=== PATIENT | female | born 1935 | race Two or more races ===

== ENCOUNTER 2022-07-18 20:55 | Inpatient (IN) | payer MEDICAID, OTHER ==
[~2022-07-18] VITALS: Ht 152.4 cm; Wt 51.3 kg
--- NOTE | 2022-07-18 21:12 | NUR ---
TO ER BED 10, BIBRA 90 FROM HOME FOR MORE ALTERED THAN NORMAL AND POOR PO INTAKE X 3 DAYS, AAOX1, BREATHING EVEN AND NON LABORED, CONNECTED TO MONITOR, AWAITING MD ORDERS
[2022-07-18] MEDS ORDERED: IV NS 0.9% 1,000 ML BAG IV ONE (21:30)
--- NOTE | 2022-07-18 21:48 | NUR ---
URINE COLLECTED AND SENT TO LAB
[2022-07-18 21:54] LABS: BASOPHILS % (AUTO) 0.3 % (0.0-2.0); EOSINOPHILS % (AUTO) 2.1 % (0.0-6.0); HEMATOCRIT 39 % (33-45); HEMOGLOBIN 12.5 g/dL (11.5-14.8); LYMPHOCYTES # (AUTO) 1.1 K/uL (0.8-4.8); LYMPHOCYTES % (AUTO) 17.5 % (20.0-44.0); MEAN CORPUSCULAR HGB CONC 32 g/dl (31.0-36.0); MEAN CORPUSCULAR VOLUME 91 fL (82-100); MONOCYTES # (AUTO) 0.7 K/uL (0.1-1.30); MONOCYTES % (AUTO) 10.6 % (2.0-12.0); NEUTROPHILS # (AUTO) 4.5 K/uL (1.8-8.9); NEUTROPHILS % (AUTO) 69.5 % (43.0-81.0); PLATELET COUNT (AUTO) 303 K/uL (150-450); RED BLOOD CELL COUNT(AUTO) 4.26 MIL/uL (4.0-5.2); WHITE BLOOD COUNT (AUTO) 6.5 K/uL (4.3-11.0)
--- NOTE | 2022-07-18 22:01 | NUR ---
TAKEN TO CT
[2022-07-18 22:24] LABS: ALANINE AMINOTRANSFERASE 13 U/L (12-78); ALBUMIN 2.2 g/dL (3.4-5.0); ALKALINE PHOSPHATASE 87 U/L (46-116); ASPARTATE AMINOTRANSFERASE 16 U/L (15-37); BILIRUBIN,DIRECT 0.1 mg/dL (0.0-0.2); BILIRUBIN,TOTAL 0.4 mg/dL (0.2-1.0); CALCIUM, SERUM 10.1 mg/dL (8.5-10.1); CARBON DIOXIDE 28 mmol/L (21-32); CHLORIDE 100 mmol/L (98-107); CREATININE 0.6 mg/dL (0.6-1.3); GLUCOSE 169 mg/dL (74-106); POTASSIUM 3.9 mmol/L (3.5-5.1); SODIUM SERUM 133 mmol/L (136-145); THYROID STIMULATING HORMONE 16.445 uIU/mL (0.358-3.74); TOTAL PROTEIN, SERUM 6.8 g/dL (6.4-8.2); UREA NITROGEN, BLOOD 15 mg/dL (7-18)
[2022-07-18 22:25] LABS: BILIRUBIN,URINE 1+ (NEGATIVE); COLOR,URINE YELLOW (YELLOW); LEUKOCYTE ESTERASE ,URINE 1+ (NEGATIVE); NITRITE, URINE NEGATIVE (NEGATIVE); PROTEIN,URINE TRACE mg/dl (NEGATIVE); UGLUCOSE NEGATIVE (NEGATIVE)
[2022-07-18 23:19] LABS: BACTERIA,URINE Many /HPF (None Seen); RBC,URINE 0-2 /HPF (0-2); SQUAMOUS EPITHELIAL CELL,UR Few /HPF (None Seen); WBC,URINE TOO NUMEROUS TO COUN /HPF (0-3)
[2022-07-18] MEDS ORDERED: CEFTRIAXONE 1GM BAG (ER ONLY) 50 ML IV ONE (23:38)
[2022-07-19] MEDS ORDERED: CEFTRIAXONE 1GM BAG (ER ONLY) 1 GM/50 ML PIGGYBACK IV ONE
[2022-07-19] MEDS ORDERED: ONDANSETRON HCL/PF 4 MG/2 ML VIAL IVP PRN (01:30)
[2022-07-19] MEDS ORDERED: ACETAMINOPHEN 325 MG TABLET PO PRN (01:30)
[2022-07-19] MEDS ORDERED: Z GUARD REMEDY 4 OZ OINT TP PRN (01:30)
[2022-07-19] MEDS ORDERED: MAGNESIUM HYDROXIDE 30 ML UDC PO PRN (01:30)
[2022-07-19] MEDS ORDERED: MAG HYDROX/AL HYDROX/SIMETH 30 ML UDC PO PRN (01:30)
[2022-07-19] MEDS ORDERED: ZOLPIDEM TARTRATE 5 MG TABLET PO PRN (01:30)
--- NOTE | 2022-07-19 01:36 | NUR ---
ATTEMPTED TO GIVE REPORT, NURSE IS STILL BUSY
--- NOTE | 2022-07-19 01:50 | NUR ---
REPORT GIVEN TO ALEKS PABON FOR IRMA
--- NOTE | 2022-07-19 02:00 | NUR ---
ROAD CONDUCTOR NOTES ADMITTED AN 87Y FEMALE PT FROM ER, PT ARRIVED VIA GURNEY ACCOMPANIED BY 2 ER PERSONNELS, PT WITH ADMITTING DX OF AMS AND UTI. PT ALERT AND ORIENTED TO SELF ONLY, SAMMARINESE SPEAKING. ON RA, SATTING 97%, NOT IN ACUTE DISTRESS, NO SOB. BREATHING EVEN AND UNLABORED. AFEBRILE. NO EVIDENCE OF PAIN OR DISCOMFORT NOTED AT THIS TIME. IV ACCESS ON RAC 18G, INTACT AND DRY. PT NOTED WITH OPEN WOUNDS ON LLE AND MULTIPLE SCRATCHES ON ABD AND SACRAL AREA. DRESSING REINFORCED. UNABLE TO OBTAIN PMHX D/T PT ALOC. SAFETY MEASSURES IMPLEMENTED: BED LOCKED AND IN LOWEST POSITION, BED ALARM ON. CALL LIGHT WITHIN EASY REACH. WILL CONT WITH POC.
[2022-07-19 04:00] VITALS: BP 154/77
[2022-07-19] MEDS: IV NS 0.9% 1,000 ML IV PRN ×2 (04:33→17:31)
--- NOTE | 2022-07-19 06:30 | NUR ---
PEDIATRIC ORTHODONTIST CLOSING NOTES PT. REMAINS IN STABLE CONDITION. AFEBRILE. CURRENTLY SLEEPING, NO FACIAL GRIMACING NOTED AT THIS TIME. ON RA, NO SOB, NO ACUTE RESP DISTRESS NOTED. IV ACCESS ON RAC 18G INTACT AND PATENT, NS CURRENTLY RUNNING AT 75ML/HR ORDERED. ALL NEEDS ATTENDED. KEPT PT CLEAN AND DRY AT ALL TIMES. SAFETY MEASURES IMPLEMENTED: BED LOCKED AND IN LOWEST POSITION, BED ALARM ON. CALL LIGHT WITHIN EASY REACH. WILL ENDORSE TO AM NURSE FOR IRMA.
[2022-07-19] MEDS: PANTOPRAZOLE 40 MG TABLET.DR PO SCH (07:32)
--- NOTE | 2022-07-19 07:32 | NUR ---
WOUND CARE CONSULT: PT PRESENTS WITH LEFT LOWER LEG WOUND, PEELING SKIN TO HEELS, SACRAL INTACT DEEP TISSUE INJURY, ALL PRESENT ON ADMISSION. DPM CONSULT MADE TO DR CARREON. RECOMMENDATIONS MADE FOR SKIN PROTECTION. DISCUSSED WITH NURSING STAFF. PT IS INCONTINENT. IN AGREEMENT WITH PLAN OF CARE. Addendum: 07/19/22 at 0734 by JULI RAINEY WNDNU Amended: Links added.
[2022-07-19 08:00] VITALS: BP 168/77
--- NOTE | 2022-07-19 08:54 | NUR ---
RN OPENING NOTE RECEIVED PATIENT IN BED, CONFUSED, ORIENTED X1, ABLE TO RESPONDS TO STIMULI. RESPIRATORY EVEN AND UNLABORED ON ROOM AIR. IV ACCESS RIGHT AC, FLUSHES WELL. PT INCONTINENT, PUREWICK IN USE. NO ACUTE DISTRESS OBSERVED. SKIN IS WARM TO TOUCH, KEEP CLEAN/DRY. KEPT ELEVATED HOB FOR ASPIRATION PRECAUTION/ENSURE AIRWAY, AND LOWEST BED POSITIONED. BED ALARM IS ON AT ALL THE TIME FOR SAFETY. CALL LIGHT WITHIN REACH, WILL CONTINUE TO MONITOR
[2022-07-19] MEDS ORDERED: CHOL100043 PO (10:12)
[2022-07-19] MEDS ORDERED: DICL100G34 TP (10:12)
[2022-07-19] MEDS ORDERED: MELO-107 PO (10:12)
[2022-07-19] MEDS ORDERED: OXYB5TAB16 PO (10:12)
[2022-07-19] MEDS: LEVOTHYROXINE SODIUM 50 MCG TABLET PO SCH (11:18)
[2022-07-19 12:00] VITALS: BP 169/73
[2022-07-19] MEDS ORDERED: CLONIDINE HCL 0.1 MG TABLET PO PRN (12:30)
[2022-07-19 16:19] VITALS: BP 125/55
--- NOTE | 2022-07-19 18:34 | NUR ---
C4 PLANNER CLOSING NOTES PT. REMAINS IN STABLE CONDITION. O2 98% ON RA, NO SOB, NO ACUTE RESP DISTRESS NOTED. IV ACCESS ON RAC 18G INTACT FLASHES WELL, NS CURRENTLY RUNNING AT 75ML/HR ORDERED. 100 ML URINE OUTPUT BY PUREWICK, BLADDER SCAN DONE AT 18:00 TO CHECK FOR URINE RETENTION, NO RETENTION NOTED. SAFETY MEASURES IMPLEMENTED: BED LOCKED AND IN LOWEST POSITION, BED ALARM ON. CALL LIGHT WITHIN EASY REACH.
--- NOTE | 2022-07-19 19:30 | NUR ---
FOOD AND DRUG INSPECTOR OPENING NOTES - RECEIVED PATIENT LAYING IN BED ASLEEP, EASY TO AROUSE. A/O X1, LETHARGIC AND PERIODS OF CONFUSION NOTED. BREATHING EVEN AND NON-LABORED ON ROOM AIR. DENIES PAIN AT THIS TIME. ON TELE MONITOR READING SINUS BRADYCARDIA AT 50 BPM. HAS RIGHT ANTECUBITAL IV ACCESS #18G WITH NS RUNNING AT 75 ML/HR. NO S/S OF INFILTRATION NOTED. PUREWICK SECURELY PLACED TO PERINEAL AREA. SAFETY MEASURES IN PLACE: BED LOCKED AND IN LOW POSITION, SIDE RAILS UP X3, CALL LIGHT WITHIN REACH. WILL CONTINUE POC.
[2022-07-19 20:00] VITALS: BP 121/82
[2022-07-19] MEDS: CEFTRIAXONE 1 G in IV D5W 50 ML IV SCH (20:20)
[2022-07-20] VITALS: BP 131/60
--- NOTE | 2022-07-20 | NUR ---
NOTIFIED HOSPITALIST RADHA THAT PATIENT'S CHART IS READY FOR MED RECON.
[2022-07-20 04:00] VITALS: BP 148/61
[2022-07-20 06:55] LABS: BASOPHILS % (AUTO) 0.3 % (0.0-2.0); EOSINOPHILS % (AUTO) 4.1 % (0.0-6.0); HEMATOCRIT 35 % (33-45); HEMOGLOBIN 11.3 g/dL (11.5-14.8); LYMPHOCYTES # (AUTO) 1.3 K/uL (0.8-4.8); LYMPHOCYTES % (AUTO) 21.7 % (20.0-44.0); MEAN CORPUSCULAR HGB CONC 32 g/dl (31.0-36.0); MEAN CORPUSCULAR VOLUME 91 fL (82-100); MONOCYTES # (AUTO) 0.6 K/uL (0.1-1.30); MONOCYTES % (AUTO) 10.5 % (2.0-12.0); NEUTROPHILS # (AUTO) 3.7 K/uL (1.8-8.9); NEUTROPHILS % (AUTO) 63.4 % (43.0-81.0); PLATELET COUNT (AUTO) 299 K/uL (150-450); RED BLOOD CELL COUNT(AUTO) 3.85 MIL/uL (4.0-5.2); WHITE BLOOD COUNT (AUTO) 5.9 K/uL (4.3-11.0)
[2022-07-20 07:15] LABS: CALCIUM, SERUM 9.7 mg/dL (8.5-10.1); CARBON DIOXIDE 25 mmol/L (21-32); CHLORIDE 105 mmol/L (98-107); CREATININE 0.5 mg/dL (0.6-1.3); GLUCOSE 138 mg/dL (74-106); MAGNESIUM 1.4 mg/dL (1.8-2.4); PHOSPHORUS 2.8 mg/dL (2.5-4.9); POTASSIUM 3.7 mmol/L (3.5-5.1); SODIUM SERUM 138 mmol/L (136-145); UREA NITROGEN, BLOOD 11 mg/dL (7-18)
--- NOTE | 2022-07-20 07:15 | NUR ---
DIRECTOR MEDIA CLOSING NOTES - PATIENT IN BED AWAKE. MORE ALERT BUT STILL CONFUSED. NO ACUTE EVENTS THROUGHOUT THE NIGHT. NO SOB OR NOTED, TOLERATING ROOM AIR WELL. AFEBRILE. NO C/O PAIN OR DISCOMFORT. ON TELE MONITOR READING SINUS BRADYCARDIA WITH BBB AT 56 BPM. RIGHT ANTECUBITAL IV ACCESS INFILTRATED, REINSERTED TO LEFT FOREARM #22G INTACT, PATENT AND FLUSHING. CLEAR LIGHT ORANGE URINE OUTPUT NOTED. WOUND AND PERINEAL CARE RENDERED. SAFETY MEASURES MAINTAINED. WILL ENDORSE TO NEXT SHIFT FOR CONTINUITY OF CARE.
[2022-07-20] MEDS: LEVOTHYROXINE SODIUM 50 MCG TABLET PO SCH (07:48)
[2022-07-20] MEDS: PANTOPRAZOLE 40 MG TABLET.DR PO SCH (07:48)
[2022-07-20] MEDS: IV NS 0.9% 1,000 ML IV PRN ×2 (07:58→20:13)
[2022-07-20 08:00] VITALS: BP 155/84
--- NOTE | 2022-07-20 08:00 | NUR ---
RN OPENING NOTE RECEIVED PATIENT IN BED, ORIENTED X1, ABLE TO RESPONDS TO STIMULI. RESPIRATORY EVEN AND UNLABORED ON ROOM AIR. IV ACCESS RIGHT AC, FLUSHES WELL. PT INCONTINENT, PUREWICK IN USE. NO ACUTE DISTRESS OBSERVED. SKIN IS WARM TO TOUCH, KEEP CLEAN/DRY. KEPT ELEVATED HOB FOR ASPIRATION PRECAUTION/ENSURE AIRWAY, AND LOWEST BED POSITIONED. BED ALARM IS ON AT ALL THE TIME FOR SAFETY. CALL LIGHT WITHIN REACH, WILL CONTINUE TO MONITOR
[2022-07-20] MEDS ORDERED: MAGNESIUM OXIDE 400 MG TABLET PO ONE (11:00)
[2022-07-20 12:00] VITALS: BP 149/89
[2022-07-20] MEDS ORDERED: DICLOFENAC TOPICAL 100 GM GEL..GM. TP PRN (12:00)
[2022-07-20] MEDS: MELOXICAM 7.5 MG TABLET PO SCH (13:07)
[2022-07-20 16:00] VITALS: BP 144/75
[2022-07-20] MEDS: OXYBUTYNIN CHLORIDE 5 MG TABLET PO SCH (17:09)
--- NOTE | 2022-07-20 18:05 | NUR ---
rn note spoke with family provided updates
--- NOTE | 2022-07-20 19:15 | NUR ---
BOBBIN COLLECTOR OPENING NOTE RECEIVED PATIENT IN BED, ORIENTED X1, MONTSERRATIAN-SPEAKING ONLY. ABLE TO RESPOND TO STIMULI. RESPIRATORY EVEN AND UNLABORED ON ROOM AIR. IV ACCESS LAC , FLUSHES WELL. PT INCONTINENT, PUREWICK IN USE AND INTACT. NO ACUTE DISTRESS OBSERVED. SKIN IS WARM TO TOUCH, CLEAN/DRY. HOB ELEVATED FOR ASPIRATION PRECAUTION/ENSURE AIRWAY. SAFETY PRECAUTIONS IN PLACE: BED LOCKED AND IN LOWEST POSITION, BED ALARM ON, SIDE RAILS UP X3, CALL LIGHT AND TRAY TABLE WITHIN REACH. WILL CONTINUE TO MONITOR AND ASSIST.
[2022-07-20 20:00] VITALS: BP 144/50
[2022-07-20] MEDS: CEFTRIAXONE 1 G in IV D5W 50 ML IV SCH (20:07)
--- NOTE | 2022-07-20 20:23 | NUR ---
RN CLOSING NOTE PATIENT IN BED, ORIENTED X1, RESPONDS TO STIMULI. RESPIRATORY EVEN AND UNLABORED ON ROOM AIR TOLERATING ABOVE 93%. IV ACCESS RIGHT AC,INTACT, PATENT AND FLUSHES WELL. PT PUREWICK IN USE.YELLOW COLOR URINE OUTPUT. NO ACUTE DISTRESS OBSERVED AT THIS TIME. SKIN IS WARM TO TOUCH, KEEP CLEAN/DRY. KEPT ELEVATED HOB FOR ASPIRATION PRECAUTIONS. ALL SAFETY MEASURES IN PLACE. BED LOCKED IN LOWEST POSITION. SIDE RAILS UP X2. BED ALARM ON.ENDORSED TO HAND ETCHER HELPER RN FOR CONTUITY OF CARE.
[2022-07-21] VITALS: BP 143/59
[2022-07-21 04:00] VITALS: BP 162/65
--- NOTE | 2022-07-21 04:42 | NUR ---
RN NOTE PT BP MEASURED AT 162/65, HR AT 53. BP RE-MEASURED 158/73, HR 57. CLONIDINE NON-ADMIN DUE TO LOW HR. CHARGE NURSE NOTIFIED. WILL CONTINUE TO MONITOR PATIENT.
--- NOTE | 2022-07-21 07:25 | NUR ---
RN OPENING NOTE RECEIVED PATIENT IN BED, ASLEEP AND AROUSABLE ORIENTED X1, MALIAN SPEAKING ONLY . ON ROOM AIR AND TOLERATED WELL WITH NO SOB OR DISTRESS NOTED , IV ACCESS LEFT FA #20 G WITH NS WITH 75 ML /HR , FLUSHES WELL. PT INCONTINENT, PUREWICK IN USE. NO C/O OF PAIN AND DISCOMFOR T NOTED . SKIN IS WARM TO TOUCH, KEEP CLEAN/DRY. KEPT ELEVATED HOB FOR ASPIRATION PRECAUTION/ENSURE AIRWAY, AND LOWEST BED POSITIONED. BED ALARM IS ON AT ALL THE TIME FOR SAFETY. CALL LIGHT WITHIN REACH, WILL CONTINUE TO MONITOR
--- NOTE | 2022-07-21 07:29 | NUR ---
CONSULTING SYSTEMS ENGINEER CLOSING NOTE PATIENT IN BED, A/O X1, KHMER-SPEAKING ONLY. ABLE TO RESPOND TO STIMULI. STABLE ON RA, RESPIRATORY EVEN AND UNLABORED. IV ACCESS LAC , FLUSHES WELL, PATENT AND INTACT. PT INCONTINENT, PUREWICK IN USE AND INTACT. NO ACUTE DISTRESS OBSERVED. SKIN IS WARM TO TOUCH, CLEAN/DRY. HOB ELEVATED FOR ASPIRATION PRECAUTION/ENSURE AIRWAY. ALL CARE PROVIDED AND MEDS TOLERATED WELL. SAFETY PRECAUTIONS MAINTAINED: BED LOCKED AND IN LOWEST POSITION, BED ALARM ON, SIDE RAILS UP X3, CALL LIGHT AND TRAY TABLE WITHIN REACH. WILL ENDORSE IRMA TO DAY SHIFT NURSE.
[2022-07-21] MEDS: PANTOPRAZOLE 40 MG TABLET.DR PO SCH (07:43)
[2022-07-21] MEDS: LEVOTHYROXINE SODIUM 50 MCG TABLET PO SCH (07:43)
[2022-07-21 08:00] VITALS: BP 160/55
[2022-07-21 08:32] LABS: CALCIUM, SERUM 9.8 mg/dL (8.5-10.1); CARBON DIOXIDE 24 mmol/L (21-32); CHLORIDE 107 mmol/L (98-107); CREATININE 0.5 mg/dL (0.6-1.3); GLUCOSE 136 mg/dL (74-106); MAGNESIUM 1.4 mg/dL (1.8-2.4); POTASSIUM 3.7 mmol/L (3.5-5.1); SODIUM SERUM 137 mmol/L (136-145); UREA NITROGEN, BLOOD 5 mg/dL (7-18)
[2022-07-21] MEDS: OXYBUTYNIN CHLORIDE 5 MG TABLET PO SCH (08:47)
[2022-07-21] MEDS: MELOXICAM 7.5 MG TABLET PO SCH (08:48)
[2022-07-21] MEDS ORDERED: CHOLECALCIFEROL 1,000 UNIT TABLET (VIT D3) PO SCH (09:00)
[2022-07-21] MEDS ORDERED: PROSOURCE / PROSTAT (PYXIS) 30 ML UDC GT SCH (09:00)
[2022-07-21] MEDS ORDERED: LEVO50TA PO (09:58)
[2022-07-21] MEDS ORDERED: NITR100C6 PO (09:58)
[2022-07-21] MEDS ORDERED: MAGNESIUM OXIDE 400 MG TABLET PO ONE (10:00)
[2022-07-21] MEDS: IV NS 0.9% 1,000 ML IV PRN (10:25)
[2022-07-21 12:00] VITALS: BP 171/76
--- NOTE | 2022-07-21 15:30 | NUR ---
SLOT FLOORPERSONDINING ROOM SUPERVISOR NOTE PATIENT IN BED, A/O X1, EMIRATI-SPEAKING ONLY. ABLE TO RESPOND TO STIMULI. STABLE ON RA, RESPIRATORY EVEN AND UNLABORED. WAS SEEN BY DR ONEILL AND MEDICALLY STABLE FOR DISCHARGE , ALL PAPERS WERE PREPARED AND DISCHARGE INSTRUCTIONS PROVIDE TO THE PATIENT AND THE SON IN LAW , REGARDING MEDICATIONS , FOLLOW UP WITH PCP IN 1 WEEK , CONTINUE RO ATB X 7 DAYS AND NEW MEDICATION OF LEVOTHYROXINE , ALL INSTRUCTIONS RPOVIDED WERE UNDERSTOOD , ALL BELONGINGS WAS BROUGHT BY THE FAMILY MEMBER , IV ACCESS WAS PEMOVED AND PATIENT AND PATIENT LEFT WITH SON IN LAW WITH THE WHEEL CHAIR AND NO SOB OR DISTRESS NOTED , NO C/O OF PAIN AND DISCOMFORT AND ASSISTED TO THE LOBBY BY NATURAL GAS INSPECTOR VIA PRIVATE CARE , LEFT IN A STABLE CONDITION
== END 2022-07-21 15:27 | disposition home health service (06) | DRG 421 ==
LOC: ER 20:57 → MEDSG1 07-19 01:35 → TELE1 07-19 02:09
PROVIDERS: ADMIT Internal Medicine; ATTEND Internal Medicine
DX: R62.7 Adult failure to thrive (principal); G93.41 Metabolic encephalopathy; E43 Unspecified severe protein-calorie malnutrition; N39.0 Urinary tract infection, site not specified; E86.0 Dehydration; E86.1 Hypovolemia; Z68.25 Body mass index [BMI] 25.0-25.9, adult; E87.1 Hypo-osmolality and hyponatremia; Z20.822 Contact with and (suspected) exposure to COVID-19; Z79.899 Other long term (current) drug therapy; S81.802A Unspecified open wound, left lower leg, initial encounter; X58.XXXA Exposure to other specified factors, initial encounter; Y92.9 Unspecified place or not applicable; R94.6 Abnormal results of thyroid function studies
CPT/HCPCS: 36415; 70450-TC; 71045-TC; 80048-TC; 80076-TC; 81001; 83605-TC; 83735-TC; 84100-TC; 84439-TC; 84443-TC; 84484-TC; 85025-TC; 87040-TC; 87081-TC; 87086-TC; 97112-TC; 97116-TC; 97530-TC; C9803; G0378; J0696; J7030; J7060